=== PATIENT | male | born 1980 | race Caucasian/White ===

== ENCOUNTER 2019-08-23 01:47 | Emergency (ER) | payer BC ==
[2019-08-23] MEDS ORDERED: traMADol 50 MG Tab PO ONE (01:59)
[2019-08-23] MEDS ORDERED: Cyclobenzaprine 10 MG Tab PO ONE (02:00)
[2019-08-23] MEDS ORDERED: Ketorolac 60 MG/2 ML SDV IM ONE (02:00)
--- NOTE | 2019-08-23 02:23 | CR ---
HISTORY: Pain after trauma COMPARISON: None available. FINDINGS: A single AP portable view of the pelvis obtained at 0208 hours shows no sign of fracture or dislocation. The hips are normal in appearance with no significant degenerative changes. The inferior lumbar spine is normal in appearance. The soft tissues of the pelvis are unremarkable. IMPRESSION: Normal examination of the pelvis. Dictated by Tanmay Alexander MD @ Aug 23 2019 2:21AM Signed by Dr. Tanmay Alexander @ Aug 23 2019 2:22AM
--- NOTE | 2019-08-23 02:40 | EDM.PDOC ---
ED HPI GENERAL MEDICAL PROBLEM - General Chief Complaint: Lower Extremity Injury/Pain Stated Complaint: ABDOMINAL PAIN Time Seen by Provider: 08/23/19 01:54 Source of Information: Reports: Patient History Limitations: Reports: No Limitations - History of Present Illness INITIAL COMMENTS - FREE TEXT/NARRATIVE: HISTORY AND PHYSICAL: History of present illness: There is a 39-year-old gentleman who presents to the ER today complaining of pain to his groin. Patient reports that he sustained an injury while he was carrying a 50 pound bag of a chemical that is extremely slippery. Patient reports that a couple drops of the chemical felt on the ground and his feet slipped resulting essentially in a split with his groin hitting the ground which was exacerbated with a 50 pound bag that he was holding. Patient denies any other trauma or pain to any other extremities. Patient denies any head injury or loss of consciousness. Patient reports he is ambulatory after the episode but having severe pain to his groin. Review of systems: As per history of present illness and below otherwise all systems reviewed and negative. Past medical history: As per history of present illness and as reviewed below otherwise noncontributory. Surgical history: As per history of present illness and as reviewed below otherwise noncontributory. Social history: No reported history of drug or alcohol abuse. Family history: As per history of present illness and as reviewed below otherwise noncontributory. Physical exam: Constitutional: Patient is oriented to person, place, and time. Appears well- developed and well-nourished. No distress. HEENT: Moist mucous membranes Head: Normocephalic and atraumatic Eyes: Right eye exhibits no discharge. Left eye exhibits no discharge. No scleral icterus Neck: Normal range of motion. No tracheal deviation present. Cardiovascular: Normal rate and regular rhythm. Pulmonary: Effort normal, no respiratory distress. Abdominal: No distention Musculoskeletal: Normal range of motion Neurologic: Alert and oriented to person, place and time. Skin: [place], warm and dry. Psychiatric: Normal mood and affect. Behavior is normal. Judgment and thought content normal. Patient's ER physical exam is significant for tenderness to palpation to his pelvis/ischium/groin bilaterally. Pain is greater on the right side but pain is diffuse. There is no evidence of soft tissue swelling or ecchymosis identified. Patient's pulses are 2+ in his femoral and popliteal. Patient is neurologically intact. Motor is 5 out of 5, sensation is intact light touch, Nursing note and vital signs have been reviewed Diagnostics: X-ray of pelvis reveals no acute pathology or fracture. Therapeutics: 60 mg IM Toradol, Flexeril 10 mg p.o., Ultram 50 mg p.o. Impression: Strained groin muscle Plan: Patient be discharged home with ibuprofen and Flexeril as well as a prescription for Ultram for breakthrough pain. Reassessment at the time of disposition demonstrates that the patient is in no acute distress. The patient has remained stable throughout the entire ED visit and is without objective evidence for acute process requiring urgent intervention or hospitalization. The patient is stable for discharge, counseling is provided as documented above, discussed symptomatic treatment and specific conditions for return. I have spoken with the patient/caregive and discussed todays findings, in addition to providing specific details for the plan of care. Questions are answered and there is agreement with the plan. Definitive disposition and diagnosis as appropriate pending reevaluation and review of above. Bilateral Groin Pain Score (Numeric/FACES): 8 - Related Data Allergies Allergy/AdvReac Type Severity Reaction Status Date / Time amoxicillin Allergy Rash Verified 08/23/19 01:57 Penicillins Allergy Anaphylactic Verified 08/23/19 01:57 Shock Cillin Family Allergy Hives Uncoded 08/23/19 01:57 Home Meds: Home Meds . [No Known Home Meds] 08/23/19 [History] Past Medical History HEENT History: Reports: None Cardiovascular History: Reports: None Respiratory History: Reports: None Genitourinary History: Reports: None Musculoskeletal History: Reports: Osteoarthritis Other Musculoskeletal History: Bilateral Knee's Neurological History: Reports: None Psychiatric History: Reports: None Endocrine/Metabolic History: Reports: None Hematologic History: Reports: None Immunologic History: Reports: None Oncologic (Cancer) History: Reports: None Dermatologic History: Reports: None - Infectious Disease History Infectious Disease History: Reports: Chicken Pox - Past Surgical History Head Surgeries/Procedures: Reports: None GI Surgical History: Reports: Appendectomy Social & Family History - Family History Family Medical History: Noncontributory - Tobacco Use Smoking Status *Q: Never Smoker Second Hand Smoke Exposure: No - Caffeine Use Caffeine Use: Reports: Soda - Recreational Drug Use Recreational Drug Use: No Review of Systems - Review of Systems Review Of Systems: Comprehensive ROS is negative, except as noted in HPI. ED EXAM, GENERAL - Physical Exam Exam: See Below Course - Vital Signs Last Recorded V/S: Last Vital Signs Temp 99.1 F 08/23/19 01:57 Pulse 106 H 08/23/19 01:57 Resp 18 08/23/19 01:57 BP 162/108 H 08/23/19 01:57 Pulse Ox 92 L 08/23/19 01:57 - Orders/Labs/Meds Meds: Medications Discontinued Medications Generic Name Dose Route Start Last Admin Trade Name Freq PRN Reason Stop Dose Admin Cyclobenzaprine HCl 10 mg 08/23/19 02:00 08/23/19 02:24 Flexeril PO 08/23/19 02:01 10 mg ONETIME ONE Administration Ketorolac Tromethamine 60 mg 08/23/19 02:00 08/23/19 02:21 Toradol IM 08/23/19 02:01 60 mg ONETIME ONE Administration Tramadol HCl 50 mg 08/23/19 01:59 08/23/19 02:19 Ultram PO 08/23/19 02:00 50 mg ONETIME ONE Administration Departure - Departure Time of Disposition: 02:36 Disposition: Home, Self-Care 01 Condition: Good Clinical Impression: Sprain of hip, Groin strain, Hamstring sprain - Discharge Information *PRESCRIPTION DRUG MONITORING PROGRAM REVIEWED*: Not Applicable *COPY OF PRESCRIPTION DRUG MONITORING REPORT IN PATIENT GRETTA: Not Applicable Instructions: Muscle Strain, Straddle Injuries, Adductor Muscle Strain Referrals: PCP,None [Primary Care Provider] - Additional Instructions: Your x-ray today did not reveal acute fracture or pathology. Your symptoms are consistent with a pulled groin muscle. You have been given instructions regarding adductor muscle strain. You have been given a prescription for Flexeril as well as ibuprofen to assist you with the pain. You will also be given a prescription for Ultram to use only for breakthrough pain if the Flexeril and ibuprofen are not sufficient. The following information is given to patients seen in the emergency department who are being discharged to home. This information is to outline your options for follow-up care. We provide all patients seen in our emergency department with a follow-up referral. The need for follow-up, as well as the timing and circumstances, are variable depending upon the specifics of your emergency department visit. If you don't have a primary care physician on staff, we will provide you with a referral. We always advise you to contact your personal physician following an emergency department visit to inform them of the circumstance of the visit and for follow-up with them and/or the need for any referrals to a consulting specialist. The emergency department will also refer you to a specialist when appropriate. This referral assures that you have the opportunity for follow-up care with a specialist. All of these measure are taken in an effort to provide you with optimal care, which includes your follow-up. Under all circumstances we always encourage you to contact your private physician who remains a resource for coordinating your care. When calling for follow-up care, please make the office aware that this follow-up is from your recent emergency room visit. If for any reason you are refused follow-up, please contact the [facility] Emergency Department at and asked to speak to the emergency department charge nurse. Sepsis Event Note (ED) - Evaluation Sepsis Screening Result: No Definite Risk - Focused Exam Vital Signs: Vital Signs Temp Pulse Resp BP Pulse Ox 08/23/19 01:57 99.1 F 106 H 18 162/108 H 92 L
== END 2019-08-23 03:04 | disposition home or self-care (01) ==
LOC: MW.ED 01:47
DX: S39.011A Strain of muscle, fascia and tendon of abdomen, initial encounter (principal); S76.311A Strain of muscle, fascia and tendon of the posterior muscle group at thigh level, right thigh, initial encounter; S73.101A Unspecified sprain of right hip, initial encounter; S73.102A Unspecified sprain of left hip, initial encounter; Z88.1 Allergy status to other antibiotic agents; Z88.0 Allergy status to penicillin; Z90.49 Acquired absence of other specified parts of digestive tract; W01.10XA Fall on same level from slipping, tripping and stumbling with subsequent striking against unspecified object, initial encounter
CPT/HCPCS: 72170; 96372; 99283; A9270; J1885